=== PATIENT | female | born 1990 | race Caucasian/White ===

== ENCOUNTER 2017-02-09 09:29 | Emergency (ER) | payer MEDICAID, OTHER ==
[~2017-02-09] VITALS: Ht 172.7 cm; Wt 95.0 kg
[2017-02-09] MEDS ORDERED: SODIUM CHLORIDE 0.9% 1,000 ML IV ONE (10:24)
[2017-02-09 11:00] LABS: HEMATOCRIT. 39.5 % (36.0-48.0); HEMOGLOBIN. 13.4 g/dL (12.0-16.0); MEAN CORPUSCULAR HEMOGLOBIN 28.8 pg (28.0-32.0); MEAN CORPUSCULAR VOLUME 84.9 fL (81.0-99.0); PLATELET 267 x1000/uL (130-400); RED BLOOD CELL COUNT 4.65 mill/uL (4.2-5.4); RED CELL DISTRIBUTION WIDTH 13.3 % (11.6-14.6)
[2017-02-09] MEDS ORDERED: ONDANSETRON HCL 4MG/2ML VIAL IV STA (11:05)
[2017-02-09] MEDS ORDERED: FAMOTIDINE 20MG/2ML VIAL IV STA (11:05)
[2017-02-09 11:07] LABS: INR 1.1; PROTHROMBIN TIME 11.1 sec
[2017-02-09 11:17] LABS: CARBON DIOXIDE 31 mEq/L (21-32); CHLORIDE 103 mEq/L (98-107); ETHANOL BLOOD < 10 mg/dL
[2017-02-09 11:18] LABS: HCG SCREEN NEGATIVE
[2017-02-09 11:30] LABS: CLARITY URINE CLEAR (CLEAR); COLOR URINE YELLOW (YELLOW); GLUCOSE URINE NEGATIVE (NEGATIVE); KETONES URINE NEGATIVE (NEGATIVE); LEUKOCYTE ESTERASE URINE NEGATIVE (NEGATIVE); NITRITE URINE NEGATIVE (NEGATIVE); OCCULT BLOOD URINE NEGATIVE (NEGATIVE); PROTEIN URINE NEGATIVE (NEGATIVE); SPECIFIC GRAVITY URINE 1.025 (1.005-1.030)
[2017-02-09 11:37] LABS: PLATELET ESTIMATE NORMAL
[2017-02-09 11:41] LABS: *AMPHETAMINES SCREEN URINE NEGATIVE (NEGATIVE); *BARBITURATES SCREEN URINE NEGATIVE (NEGATIVE); *BENZODIAZEPINES SCREEN URINE NEGATIVE (NEGATIVE); *COCAINE SCREEN URINE NEGATIVE (NEGATIVE); CANNABINOID URINE SCREEN NEGATIVE (NEGATIVE); METHADONE URINE SCREEN NEGATIVE (NEGATIVE); OPIATES URINE SCREEN NEGATIVE (NEGATIVE); PHENCYCLIDINE URINE SCREEN NEGATIVE (NEGATIVE)
[2017-02-09 12:46] VITALS: BP 108/52
== END 2017-02-09 12:50 | disposition home or self-care (01) ==
LOC: ER 09:32
DX: E86.0 Dehydration (principal); D72.829 Elevated white blood cell count, unspecified; R10.84 Generalized abdominal pain
CPT/HCPCS: 36415; 80053; 80305; 81003; 83690; 84703; 85025; 85610; 96361; 96374; 96375; 99284; G0482; J2405; J3490; J7030

== ENCOUNTER 2019-04-08 13:30 | Emergency (ER) | payer OTHER ==
[~2019-04-08] VITALS: Ht 172.7 cm; Wt 100.0 kg
[2019-04-08 13:50] VITALS: BP 144/79
[2019-04-08] MEDS ORDERED: SODIUM CHLORIDE 0.9% 1,000 ML IV ONE (15:30)
[2019-04-08 16:00] LABS: BASOPHILS % 0.4 % (0.0-2.0); EOSINOPHILS % 2.4 % (0.0-5.0); HEMATOCRIT. 37.9 % (36.0-48.0); HEMOGLOBIN. 13.4 g/dL (12.0-16.0); LYMPHOCYTES % 15.3 % (20.0-50.0); MEAN CORPUSCULAR HEMOGLOBIN 30.5 pg (28.0-32.0); MEAN PLATELET VOLUME 8.5 fl (7.4-10.4); MONOCYTES % 11.9 % (2.0-8.0); PLATELET 284 x1000/uL (130-400); RED CELL DISTRIBUTION WIDTH 13.1 % (11.6-14.6)
[2019-04-08 16:01] LABS: CHLORIDE 107 mEq/L (98-107)
== END 2019-04-08 18:06 | disposition home or self-care (01) ==
LOC: ER 13:30
DX: R05 Cough (principal); Z98.890 Other specified postprocedural states
CPT/HCPCS: 36415; 71045; 80053; 85025; 99284; J7030

== ENCOUNTER 2020-09-19 12:21 | Emergency (ER) | payer OTHER ==
[~2020-09-19] VITALS: Ht 172.7 cm; Wt 114.0 kg
[2020-09-19 12:31] VITALS: BP 138/64
[2020-09-19] MEDS ORDERED: KETOROLAC 60MG/2ML VIAL IM ONE (12:45)
== END 2020-09-19 14:18 | disposition home or self-care (01) ==
LOC: ER 12:21
DX: M54.2 Cervicalgia (principal); Z98.1 Arthrodesis status
CPT/HCPCS: 72040; 81025; 96372; 99283; J1885

== ENCOUNTER 2021-01-21 16:06 | Emergency (ER) | payer OTHER ==
[~2021-01-21] VITALS: Ht 172.7 cm; Wt 102.0 kg
[2021-01-21] MEDS ORDERED: KETOROLAC 60MG/2ML VIAL IM ONE (16:30)
[2021-01-21 16:41] VITALS: BP 137/80
[2021-01-21] MEDS ORDERED: NAPR-681 MT (17:18)
== END 2021-01-21 17:56 | disposition home or self-care (01) ==
LOC: ER 16:06
DX: M79.645 Pain in left finger(s) (principal); Z79.899 Other long term (current) drug therapy; Z98.890 Other specified postprocedural states; Z90.89 Acquired absence of other organs
CPT/HCPCS: 29130; 73130; 99283; J1885

== ENCOUNTER 2021-05-08 23:12 | Emergency (ER) | payer OTHER ==
[~2021-05-08] VITALS: Ht 172.7 cm; Wt 98.0 kg
[~2021-05-08 23:12] MED LIST: NAPR-681 MT
[2021-05-09] MEDS ORDERED: LIDOCAINE 5% PATCH TOP SCH (01:30)
[2021-05-09] MEDS ORDERED: KETOROLAC 60MG/2ML VIAL IM ONE (01:30)
[2021-05-09 03:27] VITALS: BP 118/69
== END 2021-05-09 03:30 | disposition home or self-care (01) ==
LOC: ER 23:12
DX: R07.89 Other chest pain (principal)
CPT/HCPCS: 71045; 81025; 96372; 99283; J1885

== ENCOUNTER 2022-02-17 19:06 | Inpatient (IN) | payer MEDICAID ==
[~2022-02-17] VITALS: Ht 170.2 cm; Wt 103.4 kg
[2022-02-17] MEDS ORDERED: PV W1TAB21 PO (20:01)
[2022-02-17] MEDS ORDERED: FOLI20CA PO (20:01)
[2022-02-17] MEDS ORDERED: LACTATED RINGERS 1,000 ML IV SCH ×2 (20:30→22:45)
[2022-02-17 21:07] LABS: CLARITY URINE CLOUDY (CLEAR); COLOR URINE DARK YELLOW (YELLOW); KETONES URINE TRACE (NEGATIVE); LEUKOCYTE ESTERASE URINE NEGATIVE (NEGATIVE); NITRITE URINE NEGATIVE (NEGATIVE); OCCULT BLOOD URINE NEGATIVE (NEGATIVE); PROTEIN URINE 1+ (NEGATIVE)
[2022-02-17 21:15] LABS: BASOPHILS % 0.5 % (0.0-2.0); HEMATOCRIT. 29.6 % (36.0-48.0); HEMOGLOBIN. 9.9 g/dL (12.0-16.0); LYMPHOCYTES % 26.8 % (20.0-50.0); MEAN CORPUSCULAR HEMOGLOBIN 27.9 pg (28.0-32.0); MEAN CORPUSCULAR VOLUME 83.1 fL (81.0-99.0); MEAN PLATELET VOLUME 9.8 fl (7.4-10.4); NEUTROPHILS % 62.7 % (40.0-76.0); PLATELET 184 x1000/uL (130-400); RED BLOOD CELL COUNT 3.56 mill/uL (4.2-5.4); RED CELL DISTRIBUTION WIDTH 12.7 % (11.6-14.6)
[2022-02-17 21:20] LABS: CHLORIDE 110 mEq/L (98-107)
[2022-02-17 21:28] LABS: D-DIMER 1.81 mg/L FEU (<0.50); INR 0.9; PARTIAL THROMBOPLASTIN TIME 24.9 sec (23.4-31.0); PROTHROMBIN TIME 9.7 sec (9.6-11.0)
[2022-02-18] MEDS ORDERED: RHO(D) IMMUNE GLOBULIN 300 MCG/SYR IM ONE (01:30)
[2022-02-18] MEDS ORDERED: NALOXONE HCL 0.4 MG/ML 1ML VIAL IM PRN ×2 (01:30→03:00)
[2022-02-18] MEDS ORDERED: DEXT 5%/LACTATED RINGERS 1,000 ML IV SCH (01:30)
[2022-02-18] MEDS ORDERED: LIDOCAINE HCL 1% 20ML VIAL (Pyxis) INJ INFIL SCH (01:30)
[2022-02-18] MEDS ORDERED: BUTORPHANOL TARTRATE 2 MG/ML VIAL IV PRN ×2 (01:30→16:15)
[2022-02-18] MEDS ORDERED: HYDRALAZINE 20MG/ML VIAL IV PRN (01:30)
[2022-02-18] MEDS ORDERED: LABETALOL HCL 5MG/ML VIAL 20ML IV PRN ×3 (01:30)
[2022-02-18] MEDS ORDERED: PENICILLIN G POTASSIUM 5 MMU in DEXT 5% WATER 100 ML IV SCH (02:30)
[2022-02-18] MEDS ORDERED: METHYLERGONOVINE MALEATE 0.2 MG/ML IM PRN (03:00)
[2022-02-18] MEDS ORDERED: OXYTOCIN 30 UNITS/500ML NS PMX 500 ML IV SCH ×2 (03:00→17:00)
[2022-02-18] MEDS ORDERED: CARBOPROST TROMETHAMINE 250 MCG/ML AMPUL IM PRN (03:00)
[2022-02-18] MEDS ORDERED: PENICILLIN G POTASSIUM 2.5 MMU in DEXTROSE 5% WATER 50 ML IV SCH (06:00)
[2022-02-18] MEDS ORDERED: FENTANYL CITRATE/PF 50MCG/ML 2ML VIAL ONE (06:49)
[2022-02-18] MEDS ORDERED: CEFAZOLIN SODIUM 1000MG/VIAL ONE (06:50)
[2022-02-18] MEDS ORDERED: MORPHINE SULFATE/PF 1MG/ML 10ML AMP ONE (06:50)
[2022-02-18] MEDS ORDERED: EPHEDRINE SULFATE 50MG/ML VIAL ONE (06:50)
[2022-02-18] MEDS ORDERED: PHENYLEPHRINE HCL 10 MG/ML 1ML (IV VIAL) IV ONE (06:50)
[2022-02-18] MEDS ORDERED: ONDANSETRON HCL 4MG/2ML INJ ONE (06:50)
[2022-02-18] MEDS ORDERED: OXYTOCIN 10 UNITS/ML 1ML ONE (06:50)
[2022-02-18] MEDS ORDERED: DIPHENHYDRAMINE 50MG/ML VIAL ONE (06:51)
[2022-02-18 15:10] LABS: BASOPHILS % 0.6 % (0.0-2.0); EOSINOPHILS % 0.6 % (0.0-5.0); HEMATOCRIT. 30.4 % (36.0-48.0); HEMOGLOBIN. 10.2 g/dL (12.0-16.0); LYMPHOCYTES % 28.6 % (20.0-50.0); MEAN CORPUSCULAR VOLUME 83.6 fL (81.0-99.0); MEAN PLATELET VOLUME 9.6 fl (7.4-10.4); MONOCYTES % 7.6 % (2.0-8.0); NEUTROPHILS % 62.6 % (40.0-76.0); PLATELET 174 x1000/uL (130-400); RED BLOOD CELL COUNT 3.63 mill/uL (4.2-5.4)
[2022-02-18 15:11] LABS: CHLORIDE 110 mEq/L (98-107)
[2022-02-18 15:16] LABS: D-DIMER 1.65 mg/L FEU (<0.50); INR 0.9; PARTIAL THROMBOPLASTIN TIME 24.2 sec (23.4-31.0); PROTHROMBIN TIME 9.9 sec (9.6-11.0)
[2022-02-18] MEDS ORDERED: METOCLOPRAMIDE HCL 10MG/2ML VIAL ONE (15:55)
[2022-02-18] MEDS ORDERED: GLYCOPYRROLATE 0.2 MG/ML 2ML VIAL ONE (15:57)
[2022-02-18] MEDS ORDERED: KETOROLAC 60MG/2ML VIAL IM ONE (16:05)
[2022-02-18] MEDS ORDERED: DIPHENHYDRAMINE 50MG/ML VIAL IV PRN (16:15)
[2022-02-18] MEDS ORDERED: NALOXONE HCL 0.4 MG/ML 1ML VIAL IV PRN (16:15)
[2022-02-18] MEDS ORDERED: LANOLIN OINT 7GM TUBE TOP PRN (17:00)
[2022-02-18] MEDS ORDERED: ONDANSETRON HCL 4MG/2ML INJ IV PRN (17:00)
[2022-02-18] MEDS ORDERED: RHO(D) IMMUNE GLOBULIN 300 MCG/SYR IM PRN (17:00)
[2022-02-18] MEDS ORDERED: DIPHENHYDRAMINE 25MG CAPSULE PO PRN (17:00)
[2022-02-18] MEDS ORDERED: HYDROCODONE/ACETAMINOPHEN 5/325MG TABLET PO PRN (17:00)
[2022-02-18] MEDS ORDERED: IBUPROFEN 400MG TABLET PO PRN (17:00)
[2022-02-18] MEDS ORDERED: LABETALOL HCL 100MG TABLET PO NR (18:00)
[2022-02-18 20:00] VITALS: BP 107/62
[2022-02-18] MEDS: KETOROLAC 30MG/ML VIAL IV SCH (21:29)
[2022-02-18] MEDS: DOCUSATE SODIUM 100MG CAPSULE PO SCH (21:30)
[2022-02-18] MEDS: LABETALOL HCL 100MG TABLET PO SCH (21:31)
[2022-02-19] VITALS: BP 128/80
[2022-02-19 04:00] VITALS: BP 159/78
[2022-02-19] MEDS: KETOROLAC 30MG/ML VIAL IV SCH (04:24)
[2022-02-19 06:53] LABS: BASOPHILS % 0.4 % (0.0-2.0); EOSINOPHILS % 1.1 % (0.0-5.0); HEMATOCRIT. 29.6 % (36.0-48.0); HEMOGLOBIN. 10.1 g/dL (12.0-16.0); LYMPHOCYTES % 18.9 % (20.0-50.0); MEAN CORPUSCULAR HEMOGLOBIN 28.1 pg (28.0-32.0); MEAN CORPUSCULAR VOLUME 82.1 fL (81.0-99.0); MONOCYTES % 5.9 % (2.0-8.0); NEUTROPHILS % 73.7 % (40.0-76.0); PLATELET 171 x1000/uL (130-400)
[2022-02-19 08:00] VITALS: BP 133/76
[2022-02-19] MEDS: PRENATAL VIT/FE FUMARATE/FA TABLET PO SCH (09:38)
[2022-02-19] MEDS: LABETALOL HCL 100MG TABLET PO SCH ×2 (09:39→21:28)
[2022-02-19 12:00] VITALS: BP 135/86
[2022-02-19 16:00] VITALS: BP 137/82
[2022-02-19 19:30] VITALS: BP 135/71
[2022-02-19] MEDS: DOCUSATE SODIUM 100MG CAPSULE PO SCH (21:27)
[2022-02-20] MEDS: HYDROCODONE/ACETAMINOPHEN 5/325MG TABLET PO PRN ×2 (01:56→14:42)
[2022-02-20 04:00] VITALS: BP 155/84
[2022-02-20 08:00] VITALS: BP 123/78
[2022-02-20] MEDS: PRENATAL VIT/FE FUMARATE/FA TABLET PO SCH (08:59)
[2022-02-20] MEDS: LABETALOL HCL 100MG TABLET PO SCH (09:00)
[2022-02-20 16:30] VITALS: BP 150/92
[2022-02-20] MEDS ORDERED: LABE100T5 PO (17:04)
== END 2022-02-20 18:45 | disposition home or self-care (01) | DRG 540 ==
LOC: 8 EST LDRP 19:06 → OBSVTOIN 19:06 → 8EST 02-18 20:16
PROVIDERS: ADMIT Obstetrics & Gynecology; ATTEND Obstetrics & Gynecology
PROC: 10D00Z1 Extraction of Products of Conception, Low, Open Approach (ICD-10-PCS; principal; 2022-02-18)
DX: O34.211 Maternal care for low transverse scar from previous cesarean delivery (principal); O14.94 Unspecified pre-eclampsia, complicating childbirth; O69.81X0 Labor and delivery complicated by cord around neck, without compression, not applicable or unspecified; O13.4 Gestational [pregnancy-induced] hypertension without significant proteinuria, complicating childbirth; Z20.822 Contact with and (suspected) exposure to COVID-19; O76 Abnormality in fetal heart rate and rhythm complicating labor and delivery; Z3A.39 39 weeks gestation of pregnancy; Z37.0 Single live birth
CPT/HCPCS: 36415; 76805; 76818; 80053; 81003; 84550; 85025; 85379; 85384; 86592; 86762; 86850; 86900; 87426; 88307; 99281; G0378; J0595; J0690; J1200; J1885; J2274; J2370; J2405; J2540; J2765; J3010; J3490; J7060; J7120; J7121; J2590

== ENCOUNTER 2022-04-22 17:31 | Emergency (ER) | payer OTHER ==
[~2022-04-22] VITALS: Ht 177.8 cm; Wt 80.0 kg
[~2022-04-22 17:31] MED LIST changes: +FOLI20CA PO; +LABE100T5 PO; +PV W1TAB21 PO
[2022-04-22 17:36] VITALS: BP 130/74
[2022-04-22] MEDS ORDERED: BACITRACIN ZINC OINT UDPKT TOP ONE (20:45)
[2022-04-22] MEDS ORDERED: LIDOCAINE HCL/PF 1% 10 MG/ML 5ML VIAL INFIL ONE (20:45)
== END 2022-04-22 23:14 | disposition home or self-care (01) ==
LOC: ER 17:31
DX: S01.311A Laceration without foreign body of right ear, initial encounter (principal); W22.8XXA Striking against or struck by other objects, initial encounter; Y93.89 Activity, other specified; Y92.018 Other place in single-family (private) house as the place of occurrence of the external cause
CPT/HCPCS: 12013; 99282; J3490

== ENCOUNTER 2022-12-12 21:40 | Observation (INO) | payer OTHER ==
[~2022-12-12] VITALS: Ht 172.7 cm; Wt 102.1 kg
[~2022-12-12 21:40] MED LIST changes: -LABE100T5 PO; +LABE100T9 PO
[2022-12-12] MEDS ORDERED: MAGNESIUM/ALUMINUM HYDROXIDE/SIMETHICONE 30ML UDC PO NR (22:30)
[2022-12-12] MEDS ORDERED: ONDANSETRON HCL 4MG/2ML INJ IV PRN (22:30)
[2022-12-12] MEDS ORDERED: MVI, ADULT NO.1 10 ML in SODIUM CHLORIDE 0.9% 1,000 ML IV NR ×2 (23:00)
[2022-12-12 23:20] LABS: BASOPHILS % 0.2 % (0.0-2.0); EOSINOPHILS % 1.1 % (0.0-5.0); LYMPHOCYTES % 14.8 % (20.0-50.0); MEAN CORPUSCULAR HEMOGLOBIN 28.6 pg (28.0-32.0); MEAN CORPUSCULAR VOLUME 82.6 fL (81.0-99.0); MEAN PLATELET VOLUME 8.7 fl (7.4-10.4); MONOCYTES % 7.7 % (2.0-8.0); NEUTROPHILS % 76.2 % (40.0-76.0); PLATELET 229 x1000/uL (130-400); RED BLOOD CELL COUNT 3.52 mill/uL (4.2-5.4); RED CELL DISTRIBUTION WIDTH 13.2 % (11.6-14.6)
[2022-12-12 23:22] LABS: CLARITY URINE CLEAR (CLEAR); COLOR URINE YELLOW (YELLOW); KETONES URINE TRACE (NEGATIVE); LEUKOCYTE ESTERASE URINE NEGATIVE (NEGATIVE); NITRITE URINE NEGATIVE (NEGATIVE); OCCULT BLOOD URINE NEGATIVE (NEGATIVE); PH URINE 6.5 (4.5-8.0); PROTEIN URINE TRACE (NEGATIVE); SPECIFIC GRAVITY URINE 1.035 (1.005-1.030)
[2022-12-12 23:23] LABS: CHLORIDE 109 mEq/L (98-107)
[2022-12-12 23:30] LABS: D-DIMER 0.92 mg/L FEU (<0.50); INR 0.9; PARTIAL THROMBOPLASTIN TIME 23.8 sec (23.4-31.0); PROTHROMBIN TIME 9.9 sec (9.6-11.0)
[2022-12-12] MEDS ORDERED: PREN1TAB78 PO (23:49)
[2022-12-13] MEDS ORDERED: ACETAMINOPHEN 500MG TABLET PO NR (00:30)
== END 2022-12-13 03:14 | disposition home or self-care (01) ==
LOC: 8 EST LDRP 21:40
PROVIDERS: ADMIT Obstetrics & Gynecology; ATTEND Obstetrics & Gynecology
DX: O26.893 Other specified pregnancy related conditions, third trimester (principal); R10.11 Right upper quadrant pain; R12 Heartburn; Z3A.29 29 weeks gestation of pregnancy
CPT/HCPCS: 36415; 59025; 76700; 80053; 81003; 84550; 85025; 85379; 85384; 85610; 85730; 96361; 96365; 96366; 96375; G0378; J2405; J3490; J7030; 96360; 99281

== ENCOUNTER 2024-01-06 13:27 | Emergency (ER) | payer MEDICAID, OTHER ==
[~2024-01-06] VITALS: Ht 172.7 cm; Wt 104.0 kg
[~2024-01-06 13:27] MED LIST changes: -FOLI20CA PO; -LABE100T9 PO; -NAPR-681 MT; +PREN1TAB78 PO; -PV W1TAB21 PO
[2024-01-06 13:33] VITALS: O2SAT 98
[2024-01-06] MEDS ORDERED: AMOX-494 MT (13:59)
[2024-01-06] MEDS: DEXAMETHASONE 4MG/ML 1ML VIAL IV ONE (14:11)
[2024-01-06 14:12] VITALS: BP 141/77; PULSE 70; RESP 18; TEMP 97.9
== END 2024-01-06 14:20 | disposition home or self-care (01) ==
LOC: ER 13:27
DX: J02.9 Acute pharyngitis, unspecified (principal); H66.92 Otitis media, unspecified, left ear
CPT/HCPCS: 99283; 87430; J1100